=== PATIENT | male | born 1955 | race Caucasian/White ===

== ENCOUNTER 2019-07-24 08:04 | Emergency (ER) | payer OTHER, MEDICAID ==
[~2019-07-24] VITALS: Ht 182.9 cm; Wt 78.0 kg
[2019-07-24] MEDS ORDERED: NACL 0.9% 1,000 ML IV ONE (08:10)
--- NOTE | 2019-07-24 08:10 | NUR ---
Placed in room 1 . Placed on satellite project site monitor, blood pressure machine and pulse oximeter. To gown for exam. Side rails up.
--- NOTE | 2019-07-24 08:11 | NUR ---
Pt bib ambulance after being found at the grocery store, confused and disoriented, non-verbal. Hx of autism and developmental delay, resides at a board and care. V/S stable, pt is afebrile, no evidence of trauma. Resting in bed, will continue to monitor.
--- NOTE | 2019-07-24 08:11 | NUR ---
ekg done and given to
--- NOTE | 2019-07-24 08:11 | NUR ---
# 18 gauge angiocath placed to RAC. Use of asceptic technique. Opsite placed over site. Blood return noted. Blood for lab drawn from site. Flushed with 10 cc of normal saline. No evidence of infiltration noted. Patient tolerated well.
[2019-07-24 08:12] VITALS: BP_SYST 110
[2019-07-24] MEDS ORDERED: ASPIRIN 81 MG TAB.CHEW PO ONE (08:15)
--- NOTE | 2019-07-24 08:15 | NUR ---
Pt is confused, unable to follow commands. Grabbing at staff and equiptment. Unable to re-direct. Placed in 2-point soft restraints as per MD order.
--- NOTE | 2019-07-24 08:15 | NUR ---
ER at bedside examining patient.
--- NOTE | 2019-07-24 08:25 | NUR ---
Blood and Blood cultures drawn and sent to lab
--- NOTE | 2019-07-24 08:37 | NUR ---
1L NS bolus infusing as per orders.
[2019-07-24 08:51] LABS: BASOPHILS # (AUTO) 0.1 K/uL (0.0-0.2); BASOPHILS % (AUTO) 1.2 % (0.0-2.0); EOSINOPHILS # (AUTO) 0.1 K/uL (0.0-0.4); EOSINOPHILS % (AUTO) 1.4 % (0.0-4.0); HEMOGLOBIN 14.4 g/dL (14.0-18.0); LYMPHOCYTES # (AUTO) 1.5 K/uL (1.0-5.5); LYMPHOCYTES % (AUTO) 19.7 % (20.5-51.5); MEAN CORPUSCULAR HEMOGLOBIN 30 pg (27-31); MEAN CORPUSCULAR HGB CONC 34 % (32-36); MEAN CORPUSCULAR VOLUME 90 fL (79.0-98.0); MONOCYTES # (AUTO) 0.5 K/uL (0.0-1.0); MONOCYTES % (AUTO) 6.2 % (1.7-9.3); NEUTROPHILS # (AUTO) 5.6 K/uL (1.8-7.7); NEUTROPHILS % (AUTO) 71.5 % (40.0-70.0); PLATELET COUNT (AUTO) 283 K/uL (130-430); RED BLOOD CELL COUNT(AUTO) 4.76 MIL/uL (4.2-6.2); RED CELL DISTRIBUTION WIDTH 14.1 % (9.0-15.0); WHITE BLOOD COUNT (AUTO) 7.8 K/uL (4.8-10.8)
[2019-07-24 09:02] LABS: ANION GAP 14 (5-15); CALCIUM 8.7 mg/dL (8.4-11.0); CHLORIDE 103 mmol/L (98-107); CREATININE 1.19 mg/dL (0.55-1.30); GLUCOSE 157 mg/dL (70-99); POTASSIUM 3.8 mmol/L (3.5-5.1); SODIUM SERUM 139 mmol/L (136-145); UREA NITROGEN, BLOOD 15 mg/dL (8-21)
[2019-07-24 09:07] LABS: ALANINE AMINOTRANSFERASE 31 U/L (12-78); ALBUMIN 3.6 g/dL (3.4-4.8); ASPARTATE AMINOTRANSFERASE 25 U/L (10-37); TOTAL BILIRUBIN 0.5 mg/dL (0.0-1.0)
[2019-07-24 09:08] LABS: GFR AFRICAN AMERICAN 79 mL/min (>90)
--- NOTE | 2019-07-24 09:45 | NUR ---
Patient given written and verbal discharge instructions and verbalizes understanding. ER MD discussed with patient the results and treatment provided. Patient in stable condition. ID arm band removed. IV catheter removed intact and dressing applied, no active bleeding. Patient educated on pain management and to follow up with PMD. Pain Scale 0. Opportunity for questions provided and answered. Medication side effect fact sheet provided.
[2019-07-24 09:46] VITALS: BP_SYST 110
== END 2019-07-24 09:46 | disposition home or self-care (01) ==
LOC: SED 08:04
DX: R00.0 Tachycardia, unspecified (principal)
CPT/HCPCS: 36415; 71045; 80053; 84484; 85025; 93005; 99285; J7030